=== PATIENT | male | born 1970 | race Caucasian/White ===

== ENCOUNTER 2018-07-24 13:49 | Emergency (ER) | payer BC ==
[2018-07-24 14:41] VITALS: BP 136/77
--- NOTE | 2018-07-24 14:51 | UC ---
Skin Complaint HPI - HPI Summary HPI Summary: Pt presents with c/o sudden onset of bleeding from "bellybutton" that began ~ 7 days ago. Pt noticed small amount of blood dripping from umbilicus. Pt denies injury has mild pain inside "bellybutton" - History of Current Complaint Chief Complaint: UCGeneralIllness Stated Complaint: BLEEDING BELLY BUTTON Hx Obtained From: Patient Onset/Duration: Sudden Onset, Lasting Weeks - 1 Skin Exposure Onset/Duration: Days Ago - 7 Timing: Constant Onset Severity: Mild Current Severity: Mild Pain Intensity: 0 Location: Discrete - bellybutton Character: Painful Aggravating Factor(s): Nothing Alleviating Factor(s): Unknown Associated Signs & Symptoms: Positive: Drainage - Allergy/Home Medications Allergies/Adverse Reactions: Allergies Allergy/AdvReac Type Severity Reaction Status Date / Time No Known Allergies Allergy Verified 07/24/18 14:38 Review of Systems All Other Systems Reviewed And Are Negative: Yes Constitutional: Positive: Negative Skin: Positive: Other - blood draining from bellybutton Eyes: Positive: Negative ENT: Positive: Negative Respiratory: Positive: Negative Cardiovascular: Positive: Negative Gastrointestinal: Positive: Negative Genitourinary: Positive: Negative Motor: Positive: Negative Neurovascular: Positive: Negative Musculoskeletal: Positive: Negative Neurological: Positive: Negative Psychological: Positive: Negative Is Patient Immunocompromised?: No PMH/Surg Hx/FS Hx/Imm Hx Previously Healthy: Yes - Surgical History Surgical History: Yes Surgery Procedure, Year, and Place: appy. hernia - Family History Known Family History: Positive: Hypertension - mother, Diabetes - mother Negative: Cardiac Disease - Social History Occupation: Employed Full-time Lives: With Family Alcohol Use: None Substance Use Type: None Smoking Status (MU): Never Smoked Tobacco Have You Smoked in the Last Year: No Physical Exam Triage Information Reviewed: Yes Appearance: Well-Appearing Vital Signs: Initial Vital Signs Temp 98.4 F 07/24/18 14:35 Pulse 64 07/24/18 14:35 Resp 18 07/24/18 14:35 BP 136/77 07/24/18 14:35 Pulse Ox 98 07/24/18 14:35 Vital Signs Reviewed: Yes Eye Exam: Normal ENT Exam: Normal Neck exam: Normal Respiratory: Positive: No respiratory distress Musculoskeletal Exam: Normal Neurological Exam: Normal Psychological Exam: Normal Skin Exam: Other - umbilicus with thick, odiferous discharge removed with long Qtips. Scant amount of ried blood noted on abdomen leading from umbilicus. Mild erythema inside umbilicus Course/Dx - Course Course Of Treatment: Pt was given instruction as how to cleanse and dry area and apply antifungal cream. Pt verbalized understanding and agreed to plan of care. - Differential Diagnoses - Skin Complaint Differential Diagnoses: Eczema, Tinea - Diagnoses Provider Diagnoses: tinea in umbilicus Discharge - Sign-Out/Discharge Documenting (check all that apply): Patient Departure All imaging exams completed and their final reports reviewed: No Studies - Discharge Plan Condition: Stable Disposition: HOME Prescriptions: Clotrimazole 1% CREAM* [Clotrimazole 1%*] 1 applic TOPICAL BID 7 Days #1 tube Patient Education Materials: Skin Yeast Infection (ED) Referrals: Bob Benedict PA [Primary Care Provider] - If Needed - Billing Disposition and Condition Condition: STABLE Disposition: Home
== END 2018-07-24 14:59 | disposition home or self-care (01) ==
LOC: UCCORT 13:49
DX: B35.8 Other dermatophytoses (principal)
CPT/HCPCS: 99212; G0463